=== PATIENT | female | born 1995 | race Caucasian/White ===

== ENCOUNTER 2020-09-29 14:06 | Emergency (ER) | payer OTHER ==
[2020-09-29 15:21] LABS: #Basophils 0.1 10x3/uL (0.0-0.2); #Eosinphils 0.1 10x3/uL (0.0-0.5); #Neutrophils 10.8 10x3/uL (1.5-8.4); %Basophils 0.7 % (0.0-2.0); %Eosinophils 0.3 % (0.0-6.0); %Lymphocytes 28.3 % (18.0-47.0); %Monocytes 5.7 % (0.0-10.0); %Neutrophils 60.6 % (40.0-75.0); Hemoglobin 13.5 g/dL (12.0-15.5); Mean Corpuscular Hemoglobin 28.5 pg (27.0-33.0); Mean Corpuscular Volume 83.8 fl (81.6-98.3); Mean Platelet Volume 9.7 fl (7.4-10.4); Platelet Count 404 10x3/uL (150-450); RBC Distribution Width 13.2 % (11.5-14.5); Red Blood Cell (RBC) Count 4.74 10x6/uL (3.90-5.03); White Blood Cell (WBC) Count 17.8 10x3/uL (3.5-10.5)
[2020-09-29 15:34] LABS: ALT (SGPT) 25 U/L (8-55); AST (SGOT) 14 U/L (5-34); Albumin 3.9 g/dL (3.5-5.0); Alkaline Phosphatase 53 U/L (40-110); Anion Gap 12 mmol/L (10-20); BUN (Urea Nitrogen) 21 mg/dL (7.0-18.7); Bilirubin, Total 0.6 mg/dL (0.2-1.2); Calc. Creatinine Clearance 0 mL/min (70-130); Calcium 9.7 mg/dL (7.8-10.44); Carbon Dioxide 27 mmol/L (22-29); Chloride 105 mmol/L (98-107); Globulin 3.3 g/dL (2.4-3.5); Glucose 95 mg/dL (70-105); Potassium 3.3 mmol/L (3.5-5.1); Protein, Total 7.2 g/dL (6.0-8.3); Sodium 141 mmol/L (136-145)
[2020-09-29] MEDS ORDERED: Acetaminophen 500 MG TAB ONE (15:43)
[2020-09-29] MEDS ORDERED: Dicyclomine 20 MG TAB ONE (15:44)
[2020-09-29 16:00] LABS: Bilirubin Neg (Negative); Blood, Urine 10 (Negative); Clarity Slightly Cloudy (Clear); Glucose, Urine (Dipstick) Normal (Negative); Ketone, Urine 5 mg/dL (Negative); Leukocyte 500 (Negative); Nitrite Negative (Negative); Protein, Urine (Dipstick) 30 mg/dl (Neg-Trace); Specific Gravity, Urine 1.015 (1.002-1.036)
[2020-09-29 16:14] LABS: RBC/HPF 0-3 HPF (0-3)
[2020-09-29 16:15] LABS: Bacteria/HPF Rare-Few HPF (None Seen); Calcium Oxalate Crystals Rare HPF (None Seen); Mucous/LPF 2+ LPF (<2+)
[2020-09-29] MEDS ORDERED: Morphine 4 MG/ML VIAL ONE (16:15)
[2020-09-29] MEDS ORDERED: Ondansetron PF 4 MG/2 ML Vial ONE (16:16)
[2020-09-29 16:23] LABS: Pregnancy Test - Urine (BHCG) Negative (Negative); Pregu Control Background? CLEAR/WHITE (CLR/WHITE); Pregu Control Bar Appear? YES (CONTROL BAR); Specific Gravity 1.015 (1.002-1.036)
== END 2020-09-29 19:29 | disposition home or self-care (01) ==
LOC: CSHERS 14:06
DX: K52.9 Noninfective gastroenteritis and colitis, unspecified (principal); N20.0 Calculus of kidney; E87.6 Hypokalemia; D72.829 Elevated white blood cell count, unspecified; E03.9 Hypothyroidism, unspecified
CPT/HCPCS: 74177; 80053; 81003; 81015; 81025; 83690; 85025; 87086; 96374; 96375; J2270; J2405

== ENCOUNTER 2024-03-28 14:37 | Outpatient (CLI) | payer OTHER | END 2024-03-28 14:38 | disposition home or self-care (01) | LOC: CSHDTY/OP 14:37 | PROVIDERS: ATTEND Nurse Practitioner Family | DX: Z71.3 Dietary counseling and surveillance (principal) | CPT/HCPCS: 97802 ==